=== PATIENT | female | born 1995 | race Two or more races ===

== ENCOUNTER 2020-05-12 08:49 | Emergency (ER) | payer MEDICAID ==
[~2020-05-12] VITALS: Ht 160 cm; Wt 95.3 kg
[2020-05-12 09:18] VITALS: BP 117/81
--- NOTE | 2020-05-12 09:21 | NUR ---
ED Nurse Note:pt. c/o leftearache and sore throat since , no fever
[2020-05-12] MEDS ORDERED: AMOXICILLIN500 MG ORAL (09:30)
[2020-05-12 11:10] VITALS: BP 117/81
--- NOTE | 2020-05-12 11:10 | NUR ---
ED Nurse Note: Pt cleared by health care Provider for discharge. DC instructions/prescription was given and explained to pt and verbalized understanding of teachings. All medical deviecs such as ID band removed. Pt is AAO x4, ambulatory and left with all personal belongings.
--- NOTE | 2020-05-12 11:35 | Emergency Room Report ---
History of Present Illness General Chief Complaint: Earache Source: Patient Present Illness HPI 25-year-old female presents to ED for evaluation. Complaining of left ear pain and throat pain. 3 days ago. Dull, 6 out of 10, nonradiating. Denies fevers or chills. Denies cough. Was diagnosed with Covid a few weeks ago but then had a recent test which was negative. No other aggravating relieving factors. 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 COVID-19 Screening: Negative COVID-19 COVID-19 Testing Source: nasal Patient History Past Medical History: none Past Surgical History: none Pertinent Family History: none Social History: Denies: smoking, alcohol use, drug use Now: No Immunizations: UTD Reviewed Nursing Documentation: PMH: Agreed; PSxH: Agreed Nursing Documentation-PMH Past Medical History: No Stated History Review of Systems All Other Systems: negative except mentioned in HPI Physical Exam Vital Signs Date Time Temp Pulse Resp B/P (MAP) Pulse Ox O2 Delivery O2 Flow Rate FiO2 05/12/20 09:02 97.9 86 17 117/81 (93) 99 Room Air Sp02 EP Interpretation: reviewed, normal General Appearance: no apparent distress, alert, GCS 15, non-toxic Head: normocephalic, atraumatic Eyes: bilateral eye normal inspection, bilateral eye PERRL ENT: hearing grossly normal, normal pharynx, no angioedema, normal voice, pharyngeal erythema, other - Left TM cloudy Neck: full range of motion, supple/symm/no masses Respiratory: chest non-tender, lungs clear, normal breath sounds, speaking full sentences Cardiovascular #1: regular rate, rhythm, no edema Cardiovascular #2: 2+ carotid (R), 2+ carotid (L), 2+ radial (R), 2+ radial (L), 2+ dorsalis pedis (R), 2+ dorsalis pedis (L) Gastrointestinal: normal bowel sounds, non tender, soft, non-distended, no guarding, no rebound Rectal: deferred Genitourinary: normal inspection, no CVA tenderness Musculoskeletal: back normal, normal range of motion, gait/station normal, non-tender Neurologic: alert, motor strength/tone normal, oriented x3, sensory intact, responsive, speech normal Psychiatric: judgement/insight normal, memory normal, mood/affect normal, no suicidal/homicidal ideation Reflexes: 3+ bicep (R), 3+ bicep (L), 3+ tricep (R), 3+ tricep (L), 3+ knee (R), 3+ knee (L) Skin: no rash Lymphatic: no adenopathy Medical Decision Making Diagnostic Impression: Primary Impression: Otitis media Qualified Codes: H66.90 - Otitis media, unspecified, unspecified ear ER Course Hospital Course 25-year-old female presents with left ear pain, sore throat. Differential diagnoses include: TM perforation, otitis externa, otitis media Clinical course Patient placed on stretcher. After initial history, physical exam reveals a female in no acute distress. Left TM poor light reflex. Pharyngeal erythema. Patient afebrile, nontoxic-appearing. I discussed findings with patient. Will discharge home with antibiotics. Safe for discharge with close outpatient follow-up. Diagnosis - otitis media Stable and discharged to home with Rx amoxicillin. Followup with PMD. Return to ED if symptoms recur or worsen Last Vital Signs Date Time Temp Pulse Resp B/P (MAP) Pulse Ox O2 Delivery O2 Flow Rate FiO2 05/12/20 09:18 97.9 78 17 117/81 99 Room Air Status: improved Disposition: HOME, SELF-CARE Condition: Stable Scripts Amoxicillin* (AMOXIL*) 500 Mg Capsule 500 MG ORAL THREE TIMES A DAY, #21 CAP Prov: Glen Mejia MD 05/12/20 Patient Instructions: Otitis Media, Adult, [id number] Glen Mejia MD May 12, 2020 11:35
== END 2020-05-12 11:15 | disposition home or self-care (01) ==
LOC: EMR 09:27
DX: H66.90 Otitis media, unspecified, unspecified ear (principal); Z86.19 Personal history of other infectious and parasitic diseases
CPT/HCPCS: 99282